=== PATIENT | female | born 1955 | race Caucasian/White ===

== ENCOUNTER 2024-09-12 17:26 | Emergency (ER) | payer OTHER ==
[~2024-09-12] VITALS: Ht 177.8 cm; Wt 66.7 kg
[2024-09-12 17:38] VITALS: TEMP 97.8
--- NOTE | 2024-09-12 18:13 | ED.PDOC ---
Musculoskeletal HPI Comments 68 Year-Old female presents to the ED with the c/c of Left Arm numbness and Tingling for the past 3x days. Pt states that it started yesterday while gardening but states she had another episode this afternoon. Pt states that she was at [place] earlier today, but states that her [place] doctor told her to come to the ED to rule out any potential strokes. Pt Denies fever, chills, coughing, N/V/D, SOB, Chest pain, or other associated symptoms, modifiers, or recent injuries or sick contact that this time. Chief Complaint: Upper Extremity Time Seen by MD: 18:06 Primary Care Provider: TAVIA Reviewed Notes: Nurses Notes, Medications, Allergies Allergies: Coded Allergies: NO KNOWN ALLERGIES (Unverified , 09/12/24) Information Source: Patient Mode of Arrival: Ambulatory Location: Left Extremity Location: Arm Timing: Days Prehospital treatment: None Severity: Moderate Able to Move Extremity: Yes Pain: Moderate Hand Dominance: Right Mechanism: None Circumstances: Unknown Onset of Symptoms: Spontaneous DVT Risk Factors: NONE Associated signs and symptoms: Arm pain Past Medical History PAST MEDICAL HISTORY: Denies Surgical History: Denies all surgeries [employer] History: No Pertinent PA[employer]ER History Family History Family History: Reviewed,noncontributory to illness, No family hx of Cancer, No family hx of DM, No family hx of Heart kristine, No family hx of HTN, No family hx ofKidney kristine, No family hx of Liver kristine, No family hx of Lung kristine, No family hx of Stroke Social History Smoker: Non-Smoker Alcohol: Denies ETOH Use Drugs: Denies Drug Use Constitutional: denies: chills, diaphoresis, fatigue, fever, malaise, sweats, weakness, others EENTM: denies: blurred vision, double vision, ear bleeding, ear discharge, ear drainage, ear pain, ear ringing, eye pain, eye redness, hearing loss, mouth pain, mouth swelling, nasal discharge, nose bleeding, nose congestion, nose pain, photophobia, tearing, throat pain, throat swelling, voice changes, others Respiratory: denies: cough, hemoptysis, orthopnea, SOB at rest, shortness of breath, SOB with excertion, stridor, wheezing, others Cardiovascular: denies: chest pain, dizzy spells, diaphoresis, Dyspnea on exertion, edema, irregular heart beat, left arm pain, lightheadedness, palpitations, PND, syncope, others Gastrointestinal: denies: abdomen distended, abdominal pain, blood streaked bowels, constipated, diarrhea, dysphagia, difficulty swallowing, hematemesis, melena, nausea, poor appetite, poor fluid intake, rectal bleeding, rectal pain, vomiting, others Genitourinary: denies: abnormal vagina bleeding, burning, dyspareunia, dysuria, flank pain, frequency, hematuria, incontinence, pain, , vagina discharge, urgency, others Neurological: denies: dizziness, fainting, headache, left sided numbness, left sided weakness, numbness, paresthesia, pre-existing deficit, right sided numbness, right sided weakness, seizure, speech problems, tingling, tremors, weakness, others Musculoskeletal: reports: others (Left Arm Numbness); denies: back pain, gout, joint pain, joint swelling, muscle pain, muscle stiffness, neck pain Integumetry: denies: bruises, change in color, change in hair/nails, dryness, laceration, lesions, lumps, rash, wounds, others Allergic/Immunocompromised: denies: Difficulty Healing, Frequent Infections, Hives, Itching, others Hematologic/Lymphatic: denies: anemia, blood clots, easy bleeding, easy bruising, swollen glands, others Endocrine: denies: excessive hunger, excessive sweating, excessive thirst, excessive urination, flushing, intolerance to cold, intolerance to heat, unexplained weight gain, unexplained weight loss, others Psychiatric: denies: anxiety, bipolar disorder, depression, hopeless, panic disorder, schizophrenia, sleepless, suicidal, others All Other Systems: Reviewed and Negative Physical Exam General Appearance: No Apparent Distress, Normal HEENT: Normal ENT Inspection, Pharynx Normal, TMs Normal Neck: Full Range of Motion, Non-Tender, Normal, Normal Inspection Respiratory: Chest Non-Tender, Lungs Clear, No Accessory Muscle Use, No Respiratory Distress, Normal Breath Sounds Cardiovascular: No Edema, No JVD, No Murmur, No Gallop, Normal Peripheral Pulses, Regular Rate/Rhythm Breast Exam: Deferred Gastrointestinal: No Organomegaly, Non Tender, No Pulsatile Mass, Normal Bowel Sounds, Soft Genitalia: Deferred Pelvic: Deferred Rectal: Deferred Extremities: No calf tenderness, Normal capillary refill, Normal inspection, Normal range of motion, Non-tender, No pedal edema Musculoskeletal : Apperance: Normal Neurologic: Alert, outbound sales consultant II-XII nml as Tested, No Motor Deficits, Normal Affect, Normal Mood, No Sensory Deficits Cerebellar Function: Normal Reflexes: Normal Skin: Dry, Normal Color, Warm Lymphatic: No Adenopathy Was a procedure done? Was a procedure done?: No Differential Diagnosis EXT Differential Diagnosis: Other (Cervical radiculopathy, CVA, TIA, migraine, muscle strain,) X-Ray, Labs, Meds, VS Vital Signs Date Time Temp Pulse Resp B/P (MAP) Pulse Ox O2 Delivery O2 Flow Rate FiO2 09/12/24 18:14 90 18 166/93 (117) 97 09/12/24 17:58 85 09/12/24 17:38 97.8 92 18 181/99 (126) 97 97.8 Lab Test 09/12/24 18:24 Range/Units White Blood Count 7.4 4.4-10.8 10^3/uL Red Blood Count 3.91 L 4.0-5.20 10^6/uL Hemoglobin 13.5 12.2-16.2 g/dL Hematocrit 38.1 36.0-46.0 % Mean Corpuscular Volume 97.5 80.0-100.0 fL Mean Corpuscular Hemoglobin 34.5 H 28.0-32.0 pg Mean Corpuscular Hemoglobin Concent 35.4 32.0-36.0 g/dL Red Cell Distribution Width 14.0 11.8-14.3 % Platelet Count 179 140-450 10^3/uL Mean Platelet Volume 7.7 6.9-10.8 fL Neutrophils (%) (Auto) 48.4 37.0-80.0 % Lymphocytes (%) (Auto) 42.6 10.0-50.0 % Monocytes (%) (Auto) 7.0 0.0-12.0 % Eosinophils (%) (Auto) 1.4 0.0-7.0 % Basophils (%) (Auto) 0.6 0.0-2.0 % Neutrophils # (Auto) 3.6 1.6-8.6 10 ^3/uL Lymphocytes # (Auto) 3.1 0.4-5.4 10 ^3/uL Monocytes # (Auto) 0.5 0-1.3 10 ^3/uL Eosinophils # (Auto) 0.1 0-0.8 10 ^3/uL Basophils # (Auto) 0 0-0.2 10 ^3/uL Nucleated Red Blood Cells 0.1 % Sodium Level 138 136-145 mmol/L Potassium Level 4.2 3.5-5.1 mmol/L Chloride Level 108 H 98-107 mmol/L Carbon Dioxide Level 23 20-31 mmol/L Anion Gap 7 5-15 Blood Urea Nitrogen 24 H 9-23 mg/dL Creatinine 0.94 0.550-1.02 mg/dL Glomerular Filtration Rate Calc 67 >90 mL/min BUN/Creatinine Ratio 25.5 H 10.0-20.0 Serum Glucose 96 74-106 mg/dL Calcium Level 11.7 H 8.7-10.4 mg/dL Troponin I High Sensitivity 3 L </=34 ng/L PATIENT: LITZY GALAN ACCT: [id number] UNIT: [id number] : 1955 LOC: ER ROOM / BED: / AGE / SEX: 68 / F ADM STATUS: REG ER SERVICE 51 ORDERING PHYSICIAN: JOEL NAGY MD PROCEDURE(s): CXRP - CHEST PORTABLE REASON: LEFT ARM NUMBNESS ORDER NUMBER(s): [id number], ACCESSION NUMBER(s): [id number] INDICATION: LEFT ARM NUMBNESS TECHNIQUE: Frontal view of the chest. COMPARISON: None FINDINGS: Findings:. The heart and mediastinal contours are grossly unremarkable. There is no evidence of pleural disease. The lungs are clear. There is hyperaeration of the lungs with flattening of both hemidiaphragms suggesting chronic obstructive pulmonary disease The bony structures of the chest are intact without fracture. IMPRESSION: 1. No evidence of acute disease. 2 chronic obstructive pulmonary disease Time of 1ST Reevaluation: 18:37 Reevaluation 1ST: Unchanged Patient Education/Counseling: Diagnosis, Treatment, Prognosis Family Education/Counseling: No Family Present Departure 1 Departure Time of Disposition: 20:32 ([facility] Case [id number] presenting with signs symptoms concerning for TIA versus CVA versus cervical radiculopathy. Patient labs, CT scan, chest x-ray were benign. Discussed the case with [place] physician who recommends transfer to 1 of their facilities and they will facilitate as such.) Impression: Primary Impression: Left arm numbness Disposition: 02 SHORT TERM HOSPITAL Condition: Serious Critical Care Note Critical Care Time?: Yes Critical care comment: Concern for TIA Authorized and Performed by: Joel Nagy MD Total critical care time: Approximately 39 minutes Due to a high probability of clinically significant, life threatening deterioration, the patient required my highest level of preparedness to intervene emergently and I personally spent this critical care time directly and personally managing the patient. This critical care time included obtaining a history; examining the patient; pulse oximetry; ordering and review of studies; arranging urgent treatment with development of a management plan; evaluation of patient's response to treatment; frequent reassessment; and, discussions with other providers. This critical care time was performed to assess and manage the high probability of imminent, life-threatening deterioration that could result in multi-organ failure. It was exclusive of separately billable procedures and treating other patients and teaching time. Please see my other sections and the rest of the note for further information on patient assessment and treatment. Stability Stability form required: No I personally scribed for JOEL NAGY MD ([email or web address]) on 09/12/24 at 18:13. Electronically submitted by Marino Nicholas ([email or web address]). I personally scribed for JEOL NAGY MD ([email or web address]) on 09/12/24 at 18:52. Electronically submitted by Marino Nicholas ([email or web address]). JOEL NAGY MD September 12, 2024 18:13
[2024-09-12 18:14] VITALS: BP 166/93; PULSE 90; RESP 18; O2SAT 97
--- NOTE | 2024-09-12 18:40 | DVH ---
INDICATION: LEFT ARM NUMBNESS TECHNIQUE: Frontal view of the chest. COMPARISON: None FINDINGS: Findings:. The heart and mediastinal contours are grossly unremarkable. There is no evidence of pleu ral disease. The lungs are clear. There is hyperaeration of the lungs with flattening of both hemidia phragms suggesting chronic obstructive pulmonary disease The bony structures of the chest are intac t without fracture. IMPRESSION: 1. No evidence of acute disease. 2 chronic obstructive pulmonary disease
[2024-09-12 18:41] LABS: Basophils # (auto) 0 10 ^3/uL (0-0.2); Eosinophils # (auto) 0.1 10 ^3/uL (0-0.8); Lymphocytes # (auto) 3.1 10 ^3/uL (0.4-5.4); Monocytes # (auto) 0.5 10 ^3/uL (0-1.3); Nucleated Red Blood Cells % 0.1 %
[2024-09-12 18:44] LABS: Basophils % (auto) 0.6 % (0.0-2.0); Eosinophils % (auto) 1.4 % (0.0-7.0); Hematocrit 38.1 % (36.0-46.0); Hemoglobin 13.5 g/dL (12.2-16.2); Lymphocytes % (auto) 42.6 % (10.0-50.0); Mean Corpuscular Hemoglobin 34.5 pg (28.0-32.0); Mean Corpuscular Hgb Conc. 35.4 g/dL (32.0-36.0); Mean Corpuscular Volume 97.5 fL (80.0-100.0); Neutrophils # (auto) 3.6 10 ^3/uL (1.6-8.6); Neutrophils % (auto) 48.4 % (37.0-80.0); Platelet Count (auto) 179 10^3/uL (140-450); Red Blood Cells 3.91 10^6/uL (4.0-5.20); White Blood Cell 7.4 10^3/uL (4.4-10.8)
[2024-09-12 18:56] LABS: Potassium 4.2 mmol/L (3.5-5.1); Sodium 138 mmol/L (136-145)
[2024-09-12 18:57] LABS: Anion Gap 7 (5-15); Carbon Dioxide 23 mmol/L (20-31)
--- NOTE | 2024-09-12 19:01 | DVH ---
EXAM: CT HEAD WITHOUT CONTRAST INDICATION: left arm weakness EXAM DATE: 09/12/2024 06:10 PM COMPARISON: None TECHNIQUE: CT of the head without intravenous contrast. Radiation Dose Information: CTDI volume is 54.63 mGy. Dose-length product is 1094.33 mGy*cm FINDINGS: There is no evidence of acute intracranial hemorrhage, extra-axial collection, mass effect, midline s hift, herniation or hydrocephalus. Mild global atrophy. The ventricles, sulci and cisterns are age ap propriate. The dockery-white differentiation is intact. Atherosclerotic changes with calcification in th e vertebrobasilar circulation. The visualized paranasal sinuses and mastoid air cells are clear. The surrounding soft tissues and osseous structures are unremarkable. IMPRESSION: 1. No evidence of acute intracranial hemorrhage, mass effect or hydrocephalus.
[2024-09-12 19:02] LABS: BUN/Creatinine Ratio 25.5 (10.0-20.0); Glucose 96 mg/dL (74-106)
[2024-09-12 19:03] LABS: Blood Urea Nitrogen 24 mg/dL (9-23); Calcium 11.7 mg/dL (8.7-10.4); Chloride 108 mmol/L (98-107)
--- NOTE | 2024-09-13 10:28 | ECG ---
[facility] Test Date: 2024-09-12 Test Time: 17:58:39 Pat Name: ALL GALAN Department: ER Room: Gender: F Group Teacher: AM : 1955 Requested By: JOEL MITCHELL Order Number: [id number] Reading MD: Sergey Villalobos Measurements Intervals [place] Rate: 85 P: 74 WV: 146 QRS: 69 QRSD: 90 T: 59 QT: 358 QTc: 426 Interpretive Statements Sinus rhythm Baseline wander in lead(s) V2 Electronically Signed On 09-17-2024 11:43:42 PDT by Sergey Villalobos Please click the below link to view image of tracing.
== END 2024-09-12 22:26 | disposition left against medical advice (07) ==
LOC: ER 17:26
DX: R20.0 Anesthesia of skin (principal); Z79.899 Other long term (current) drug therapy
CPT/HCPCS: 36415; 70450; 71045; 80048; 82947; 84484; 85025; 93005